=== PATIENT | male | born 1945 | race Caucasian/White ===

== ENCOUNTER → 2023-01-30 11:33 | Outpatient (CLI) | payer BC, MEDICARE, SELFPAY ==
[2023-01-30 12:05] LABS: Basophils # 0.1 K/mm3 (0-0.2); Basophils % 0.7 % (0.1-2.0); Eosinophils # 0.5 K/mm3 (0.0-0.4); Eosinophils % 4.3 % (0.1-12.0); Hematocrit 41.5 % (42.0-52.0); Hemoglobin 13.4 g/dL (14.1-18.0); Mean Corpuscular HGB Conc 32.2 g/dL (31.8-35.4); Mean Corpuscular Hemoglobin 29.6 pg (27.0-31.2); Mean Corpuscular Volume 91.9 fl (80-94); Mean Platelet Volume 8.9 fl (7.4-10.4); Monocytes # 0.7 K/mm3 (0.1-1.0); Monocytes % 6.6 % (1.7-9.3); Neutrophils # 8.6 K/mm3 (1.8-7.8); Neutrophils % 79.4 % (37.0-80.0); Platelet Count 461 K/mm3 (142-424); Red Blood Count 4.52 M/mm3 (4.60-6.20); Red Cell Distribution Width 15.5 % (11.5-17.5); White Blood Count 10.8 K/mm3 (4.8-10.8)
[2023-01-30 13:07] LABS: Alanine Aminotransferase 14 U/L (12-78); Albumin Level 3.1 g/dl (3.5-5.0); Albumin/Globulin Ratio 0.9 (1.1-1.8); Alkaline Phosphatase 152 U/L (38-126); Anion Gap 14.4 mEq/L (5-15); Aspartate Amino Transferase 27 U/L (17-59); Bilirubin,Total 0.2 mg/dl (0.2-1.3); Blood Urea Nitrogen 14 mg/dl (9-20); Calcium 8.1 mg/dl (8.4-10.2); Carbon Dioxide 28 mmol/L (22.0-30.0); Chloride 103 mmol/L (98-107); Estimated Glomerular Filt Rate 130 ml/min (>60); GFR (African American) 157 ML/MIN (>60); Globulin 3.3 g/dL (1.3-3.2); Glucose 85 mg/dl (74-100); Potassium 4.4 mmoL/L (3.5-5.1); Sodium 141 mmol/L (136-145); Total Protein,Serum 6.4 g/dl (6.3-8.2); Uric Acid 3.3 mg/dl (3.5-8.5)
== END ==
PROVIDERS: PCP Internal Medicine Adolescent Medicine; Visit Provider Internal Medicine Adolescent Medicine
DX: D64.9 Anemia, unspecified (principal)
CPT/HCPCS: 80053; 84550; 85025

== ENCOUNTER → 2023-03-18 07:01 | Outpatient (CLI) | payer BC, MEDICARE, SELFPAY ==
[2023-03-18 07:30] LABS: Basophils % 0.1 % (0.1-2.0); Eosinophils # 0.1 K/mm3 (0.0-0.4); Eosinophils % 0.2 % (0.1-12.0); Hematocrit 44.3 % (42.0-52.0); Hemoglobin 14.7 g/dL (14.1-18.0); Lymphocytes # 0.7 K/mm3 (0.7-4.5); Lymphocytes % 2.4 % (10-50); Mean Corpuscular HGB Conc 33.2 g/dL (31.8-35.4); Mean Corpuscular Hemoglobin 29.3 pg (27.0-31.2); Mean Corpuscular Volume 88.2 fl (80-94); Mean Platelet Volume 8.9 fl (7.4-10.4); Monocytes # 0.8 K/mm3 (0.1-1.0); Monocytes % 2.8 % (1.7-9.3); Neutrophils # 26.6 K/mm3 (1.8-7.8); Neutrophils % 94.5 % (37.0-80.0); Platelet Count 350 K/mm3 (142-424); Red Blood Count 5.02 M/mm3 (4.60-6.20); Red Cell Distribution Width 17.5 % (11.5-17.5); White Blood Count 28.1 K/mm3 (4.8-10.8)
[2023-03-18 07:35] LABS: Chloride 101 mmol/L (98-107); Sodium 137 mmol/L (136-145)
[2023-03-18 07:36] LABS: Potassium 4.3 mmoL/L (3.5-5.1)
[2023-03-18 07:38] LABS: Alanine Aminotransferase 12 U/L (12-78); Alkaline Phosphatase 123 U/L (38-126); Anion Gap 13.3 mEq/L (5-15); Aspartate Amino Transferase 29 U/L (17-59); Bilirubin,Total 0.6 mg/dl (0.2-1.3); Blood Urea Nitrogen 15 mg/dl (9-20); Carbon Dioxide 27 mmol/L (22.0-30.0); Estimated Glomerular Filt Rate 130 ml/min (>60); GFR (African American) 157 ML/MIN (>60)
[2023-03-18 07:39] LABS: Albumin Level 3.4 g/dl (3.5-5.0); Calcium 8.6 mg/dl (8.4-10.2); Globulin 3.4 g/dL (1.3-3.2); Glucose 169 mg/dl (74-100); Total Protein,Serum 6.8 g/dl (6.3-8.2)
[2023-03-18 08:49] LABS: MANUAL DIFFERENTIAL MANUAL DIFFERENTIAL (MANUAL DIFF)
[2023-03-18 10:31] LABS: Lymphocytes % 2 % (10-50); Monocytes % 2 % (2-9); Neutrophils % 96 % (42-76); Platelet Estimate Normal; RBC Morphology Normal; Total Cells Counted 100
== END ==
PROVIDERS: PCP Internal Medicine Adolescent Medicine; Visit Provider Nurse Practitioner Family
DX: R11.2 Nausea with vomiting, unspecified (principal); K92.2 Gastrointestinal hemorrhage, unspecified
CPT/HCPCS: 80053; 85007; 85025

== ENCOUNTER 2023-03-18 12:06 | Emergency (ER) | payer BC, MEDICARE, MEDICAID, SELFPAY ==
[2023-03-18 12:06] VITALS: BP 124/85; PULSE 93; RESP 16; TEMP 36.5; O2SAT 89; BMI 35.6
[2023-03-18 12:10] VITALS: BP 124/85; PULSE 98; O2SAT 90
--- NOTE | 2023-03-18 12:30 | PC.NURSE ---
Dr. Jo at [facility] for pt eval
[2023-03-18 12:31] VITALS: BP 128/64; PULSE 90; O2SAT 93
--- NOTE | 2023-03-18 12:39 | CT_ITS ---
FINAL REPORT TECHNIQUE: Postcontrast axial images through the abdomen and pelvis were performed. This study was performed with techniques to keep radiation doses as low as reasonably achievable, (ALARA). Individualized dose reduction techniques using automated exposure control or adjustment of mA and/or kV according to the patient's size were employed. CLINICAL HISTORY: dementia; NH states feculent emesis pt after CT scan FINDINGS: Abdomen: There is bibasilar atelectasis. There is presumed mucous plugging in the left lower lobe with bronchiectasis. Fluid is seen in the esophagus, likely reflux. The liver is normal in size and attenuation. There are gallstones. The spleen is unremarkable. The adrenals are normal. The pancreas is unremarkable. Right renal cyst is identified. The aorta is normal in caliber. No free fluid or adenopathy is identified. The stomach is fluid-filled and distended. Gas is seen in the dependent portion of the stomach worrisome for emphysematous gastritis. The rectum is distended and stool filled measuring up to 8.5 cm with wall thickening. Findings are worrisome for stercoral colitis. There is right hip arthroplasty. Pelvis: The appendix is not identified. The urinary bladder is unremarkable. No free fluid, free air, abscess or adenopathy is identified. IMPRESSION: Findings worrisome for emphysematous gastritis. Cholelithiasis. Findings worrisome for stercoral colitis. Reviewed, Interpreted and Dictated by Hima Alberto III, MD Transcribed by Jeanie Shabazz Authenticated and [facility]
--- NOTE | 2023-03-18 12:42 | HMH.EDGENADL ---
Discharge Plan Disposition Chief Complaint: Recheck/Abnormal Lab/Rx Referrals Follow up/Referrals: Santy Pitts MD [Primary Care Provider] - See instructions Clinical Impressions Clinical Impression: Nausea with vomiting, Acute upper GI bleed, Cardiac arrest Discharge ED Provider: Amira Jo General Adult HPI General Chief complaint: Recheck/Abnormal Lab/Rx Stated complaint: abnormal labs Time Seen by Provider: 03/18/23 12:26 Mode of Arrival: Ambulatory Source of Information: Patient Limitations: No Limitations Description of Symptoms (Recalled from ER Triage Doc. by RN): care home states that pt wbc was elevated, pt has been taking antibiotic at the care home for a sore on his upper lip from a tooth. snf also reports black emesis that smelt like feces. Pt denies any pain at this time. Per EMS the care home stated that he might have a UTI History of Present Illness HPI narrative: Is a 77-year-old male with a history of Parkinson's disease and dementia history is severely limited secondary to that and history was obtained through the nurse from the care home as well as the patient's . The care home states the patient had 2 episodes of emesis the first was very dark and feculent according to the nursing staff. The second was not not dark or not feculent. The patient is unable to tell us if he has any significant abdominal pain etc. The states that he constantly has coarse breath sounds and they have been concerned about aspiration in the past and are unsure as to whether not this happened again today. Related Data Allergies Allergy/AdvReac Type Severity Reaction Status Date / Time NO KNOWN ALLERGIES Allergy Uncoded 05/20/17 14:53 [facility] Disclaimer: The information contained in this section may have been updated after the patient was seen, as this information can be updated by other users. Social History Smoking Status: Unknown if ever smoked alcohol intake: never current occupational status: other Travel in the last 8 weeks: None ROS Obtained: Yes All systems reviewed & no additional complaints except as documented Physical Exam General General appearance: alert and in no apparent distress Respiratory Respiratory exam: Present other (Diffuse coarse breath sounds oxygen saturations 93% on 2 L nasal cannula no respiratory distress no focality to the lung exam) Cardiovascular Cardiovascular exam: Present regular rate; Absent tachycardia Abdominal Exam Abdominal exam: Present soft; Absent distention, tenderness, guarding, rebound or rigidity Neurological Exam Neurological exam: Present alert Medical Decision Making Tim Inquiry Pt receiving controlled substance: No Vital Signs: 03/18/23 12:06 03/18/23 12:10 03/18/23 12:31 Temperature 97.7 F Temperature Source Oral Pulse Rate 98 H 90 Pulse Rate [Left Radial] 93 H Respiratory Rate 16 Blood Pressure 124/85 128/64 Blood Pressure [Right Arm] 124/85 Blood Pressure Mean 100 85 Blood Pressure Mean [Right Arm] 98 Blood Pressure Source [Right Arm] Automatic Cuff Blood Pressure Position [Right Arm] Sitting 02 Sat by Pulse Oximetry 89 L 90 L 93 L Oxygen Delivery Method Room Air Lab Data Lab results reviewed: Yes I reviewed the patient's lab results. Lab Results 03/18/23 12:40: WBC 36.6 H* D, RBC 5.47, Hgb 16.1, Hct 48.5, MCV 88.6, MCH 29.4, MCHC 33.2, RDW 17.6 H, Plt Count 361, MPV 9.4, Neut % (Auto) 95.9 H, Lymph % (Auto) 0.9 L, [place] % (Auto) 2.0, Eos % (Auto) 0.9, Baso % (Auto) 0.3, Neut # (Auto) 35.1 H, Lymph # (Auto) 0.3 L, [place] # (Auto) 0.7, Eos # (Auto) 0.3, Baso # (Auto) 0.1, Sodium 137, Potassium 5.4 H D, Chloride 100, Carbon Dioxide 25, Anion Gap 17.4 H, BUN 18, Creatinine 0.60 L, Estimated Creat Clear 90, Estimated GFR 130, Est GFR ( Amer) 157, Glucose 149 H, Calcium 8.8, Total Bilirubin 1.5 H, AST 46 D, ALT 32 D, Alkaline Phosphatase 81, Troponin I < 0.01, Total
[2023-03-18 12:53] LABS: Coronavirus 19, PCR Not Detected (NotDetected); Influenza A, PCR Not Detected (NotDetected); Influenza B, PCR Not Detected (NotDetected)
[2023-03-18 12:54] LABS: Basophils # 0.1 K/mm3 (0-0.2); Basophils % 0.3 % (0.1-2.0); Eosinophils # 0.3 K/mm3 (0.0-0.4); Eosinophils % 0.9 % (0.1-12.0); Hematocrit 48.5 % (42.0-52.0); Hemoglobin 16.1 g/dL (14.1-18.0); Lymphocytes # 0.3 K/mm3 (0.7-4.5); Lymphocytes % 0.9 % (10-50); Mean Corpuscular HGB Conc 33.2 g/dL (31.8-35.4); Mean Corpuscular Hemoglobin 29.4 pg (27.0-31.2); Mean Corpuscular Volume 88.6 fl (80-94); Mean Platelet Volume 9.4 fl (7.4-10.4); Monocytes # 0.7 K/mm3 (0.1-1.0); Neutrophils # 35.1 K/mm3 (1.8-7.8); Neutrophils % 95.9 % (37.0-80.0); Platelet Count 361 K/mm3 (142-424); Red Blood Count 5.47 M/mm3 (4.60-6.20); Red Cell Distribution Width 17.6 % (11.5-17.5); White Blood Count 36.6 K/mm3 (4.8-10.8)
[2023-03-18 12:56] LABS: Chloride 100 mmol/L (98-107); Sodium 137 mmol/L (136-145)
[2023-03-18 12:58] LABS: Blood Urea Nitrogen 18 mg/dl (9-20); Potassium 5.4 mmoL/L (3.5-5.1)
[2023-03-18 12:59] LABS: Alanine Aminotransferase 32 U/L (12-78); Albumin Level 3.8 g/dl (3.5-5.0); Albumin/Globulin Ratio 0.9 (1.1-1.8); Alkaline Phosphatase 81 U/L (38-126); Anion Gap 17.4 mEq/L (5-15); Aspartate Amino Transferase 46 U/L (17-59); Bilirubin,Total 1.5 mg/dl (0.2-1.3); Calcium 8.8 mg/dl (8.4-10.2); Carbon Dioxide 25 mmol/L (22.0-30.0); Creatinine Clearance Estimated 90 mL/min (50-200); Estimated Glomerular Filt Rate 130 ml/min (>60); GFR (African American) 157 ML/MIN (>60); Globulin 4.3 g/dL (1.3-3.2); Glucose 149 mg/dl (74-100); Lipase 66 U/L (23-300); Total Protein,Serum 8.1 g/dl (6.3-8.2)
[2023-03-18 13:12] LABS: Troponin I < 0.01 ng/ml (0.00-0.034)
--- NOTE | 2023-03-18 13:28 | PC.NURSE ---
called dietary for courtesy cart
--- NOTE | 2023-03-18 13:33 | PC.NURSE ---
Courtesy at [facility]
--- NOTE | 2023-03-18 13:50 | PC.NURSE ---
Spoke with Jen Caraballo in [facility] who states that due to pt history he is released to the home per their standpoint. MD yu
--- NOTE | 2023-03-18 14:24 | PC.NURSE ---
Rashida and myself placed chairs in rooms for pt family at [facility]
[2023-03-18 15:56] VITALS: BP 0/0; PULSE 0; RESP 0; TEMP -17.7; TEMP 0; O2SAT 0
[2023-03-18 15:58] VITALS: BP 0/0; PULSE 0; RESP 0; TEMP -17.7; TEMP 0; O2SAT 0
--- NOTE | 2023-04-15 21:18 | EXP.DEATH.NO ---
Pronouncement Note Date and Time of Date of : 03/18/23 Time of : 13:15 PCOD Preliminary cause of : Cardiac arrest Contributing Factors (1) Acute upper GI bleed: Additional Data Confirmation of : no pulse, no respirations, no heart sounds and pupils fixed and dilated Family: at bedside and contacted Was code activated?: Yes Autopsy requested?: No district medical examiner notified?: No Organ bank notified?: Yes Advance directives: Yes (Patient was DNR is at the bedside when patient rested)
== END 2023-03-18 15:58 | disposition expired ==
PROVIDERS: Emergency Provider Student in an Organized Health Care Education/Training Program; PCP Internal Medicine Adolescent Medicine
DX: I46.9 Cardiac arrest, cause unspecified (principal); K92.2 Gastrointestinal hemorrhage, unspecified; R11.2 Nausea with vomiting, unspecified; E87.5 Hyperkalemia; G20.C Parkinsonism, unspecified; F03.90 Unspecified dementia, unspecified severity, without behavioral disturbance, psychotic disturbance, mood disturbance, and anxiety
CPT/HCPCS: 74177; 80053; 83690; 84484; 85025; 87636; 96374; 99284; J2405; Q9967